=== PATIENT | female | born 2000 | race Caucasian/White ===

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

== ENCOUNTER 2019-07-23 22:46 | Observation (INO) ==
[2019-07-23] MEDS ORDERED: LEVSIN/MAALOX/LIDOC VISC PO ONE (23:08)
[2019-07-23] MEDS ORDERED: LEVSIN/MAALOX/LIDOC VISC ONE (23:09)
--- NOTE | 2019-07-23 23:13 | ED.ABDFE ---
HPI - PCP Primary Care Physician: BENITA ONOFRE - HPI Comment HPI Comment: Pain as below; constant and worsening; n/v x 2; no diarrhea; took tums/zantac w/o relief; no rash, fever or chills; unable to get comfortable. - Complaint Chief Complaint:: STATES SHE STARTED HURTING 3 DAYS AGO IN THE CENTER OF HER STOMACH. STATES THE PAIN HAS GOTTEN WORSE AND IS NOW RADIATING AROUND THE LEFT SIDE TO HER BACK. - Source History Provided: Patient - Mode of arrival Mode of Arrival: Ambulatory - Timing Onset of Chief Complaint: 07/20/19 - Time seen Time Seen by Provider: 07/23/19 23:07 PMH - PMH Past Medical History: Yes Past Medical History: Depression, Anxiety, GERD Past Surgical History: Yes Surgical History: Cholecystectomy, Tonsillectomy - Family History History of Family Medical Conditions: Yes Family Medical History: Diabetes Mellitus, Hypertension - Social History Does patient currently use any type of tobacco product: No Have you used tobacco products in the last 12 months: No Type of Tobacco Use: None Does any household member use tobacco: Yes Do you use any recreational Drugs:: No Lives With: Spouse Lives Where: Home - infectious screening In the last 2 months have you had wt loss of >10#?: NO Have you had fever, night sweats or hemotysis?: No Have you traveled outside the country in the last 6 months?: No Isolation: Standard ROS - Review of Systems Constitutional: No Symptoms Reported Eyes: No Symptoms Reported ENTM: No Symptoms Reported Respiratoy: No Symptoms Reported Cardiovascular: No Symptoms Reported Gastrointestinal/Abdominal: See HPI Genitourinary: No Symptoms Reported Neurological: No Symptoms Reported Musculoskeletal: No Symptoms Reported Integumentary: No Symptoms Reported Hematologic/Lymphatic: No Symptoms Reported Endocrine: No Symptoms Reported Psychiatric: No Symptoms Reported PE - General Limitations: No Limitations General Appearance: Alert, In No Apparent Distress - Head Head Exam: Normal Inspection - Eyes Eye exam: Normal Appearance, PERRL - ENT ENT Exam: Normal Exam - Neck Neck Exam: Normal Inspection - Chest Chest Inspection: Normal Inspection - Respiratory Respiratory Exam: Normal Lung Sounds Bilat - Cardiovascular Cardiovascular Exam: Regular Rate, Normal Rhythm - Abdominal Exam Abdominal Exam: Normal Inspection, Normal Bowel Sounds, Soft Abdominal Tenderness: RLQ, Other (rt flank) - Extremeties Extremities Exam: Normal Inspection, Full ROM - Neurologic Neurological Exam: Alert, Oriented X3 - Vital Signs Vitals: Temperature 97.3 F Pulse Rate 90 Respiratory Rate 18 Blood Pressure [Right Arm] 122/71 Blood Pressure 125/68 O2 Sat by Pulse Oximetry 99 Course - Reevaluation 1st: Worsened (throwing up) - Consultation Called: 00:40 (s/w Dr Perea who accepts consult) Call Returned: 01:10 (Dr Lau accepts admission) - Education/Counseling Education/Counseling: Patient, Family ROR - Labs Reviewed Result Diagrams: 07/23/19 23:22 07/23/19 23:22 - XRAY XRAY Interpreted by: Radiologist (Acute appendicitis. Surgical consultation recommended) - Labs Reviewed Laboratory: WBC 7.1 X10^3/uL (3.6-10.0) 07/23/19 23:22 RBC 4.86 X10^6/uL (3.5-5.4) 07/23/19 23:22 Hgb 14.3 g/dL (12.0-16.0) 07/23/19 23:22 Hct 41.3 % (36.0-47.0) 07/23/19 23:22 MCV 84.8 fL (80.0-100.0) 07/23/19 23:22 MCH 29.3 pg (27.0-34.0) 07/23/19 23:22 MCHC 34.6 g/dL (33.0-35.0) 07/23/19 23:22 RDW 13.5 % (11.6-16.5) 07/23/19 23:22 Plt Count 349 X10^3/uL (150.0-450.0) 07/23/19 23:22 MPV 7.7 fL (7.4-11.0) 07/23/19 23:22 Neut % (Auto) 47.2 % (42.0-75.0) 07/23/19 23:22 Lymph % (Auto) 43.8 % (21.0-51.0) 07/23/19 23:22 [place] % (Auto) 7.4 % (0.0-13.0) 07/23/19 23:22 Eos % (Auto) 1.0 % (0.9-2.9) 07/23/19 23:22 Baso % (Auto) 0.6 % (0.2-1.0) 07/23/19 23:22 Neut # (Auto) 3.4 x10^3/uL (2.2-4.8) 07/23/19 23:22 Lymph # (Auto) 3.1 X10^3/uL (1.3-2.9) H 07/23/19 23:22 [place] # (Auto) 0.5 x10^3/uL (0.3-0.8) 07/23/19 23:22 Eos # (Auto) 0.1 x10^3/uL (0.0-0.2) 07/23/19 23:22 Baso # (Auto) 0.0 X10^3/uL (0.0-0.1) 07/23/19 23:22 Absolute Nucleated RBC 0.0 /100WBC 07/23/19 23:22 Sodium 138 mmol/L (136-145) 07/23/19 23:22 Corrected Sodium TNP 07/23/19 23:22 Potassium 3.8 mmol/L (3.5-5.1) 07/23/19 23:22 Chloride 102 mmol/L (98-107) 07/23/19 23:22 Carbon Dioxide 26.3 mmol/L (21-32) 07/23/19 23:22 BUN 11 mg/dL (7-18) 07/23/19 23:22 Creatinine 0.80 mg/dL (0.55-1.02) 07/23/19 23:22 Est GFR (MDRD) Af Amer > 60 (>60) 07/23/19 23:22 Est GFR (MDRD) Non-Af > 60 (>60) 07/23/19 23:22 Glucose 105 mg/dL (65-99) H 07/23/19 23:22 Calcium 9.1 mg/dL (8.5-10.1) 07/23/19 23:22 Corrected Calcium TNP 07/23/19 23:22 Total Bilirubin 0.20 mg/dL (0.2-1.0) 07/23/19 23:22 AST 19 Units/L (15-37) 07/23/19 23:22 ALT 45 Units/L (12-78) 07/23/19 23:22 Alkaline Phosphatase 77 Units/L (45-150) 07/23/19 23:22 Total Protein 7.3 g/dL (6.4-8.2) 07/23/19 23:22 Albumin 3.9 g/dL (3.4-5.0) 07/23/19 23:22 Globulin 3.4 g/dL (2.5-4.5) 07/23/19 23:22 Albumin/Globulin Ratio 1.1 Ratio (1.1-2.1) 07/23/19 23:22 Amylase 43 Units/L (25-115) 07/23/19 23:22 Lipase 146 Units/L (73-393) 07/23/19 23:22 HCG, Qual Negative <10 mIU/mL 07/23/19 23:22 Specimen Type Clean catch urine 07/23/19 23:17 Urine Color Pale yellow (YELLOW) 07/23/19 23:17 Urine Appearance Clear (CLEAR) 07/23/19 23:17 Urine pH 7.0 (5.0 - 8.0) 07/23/19 23:17 Ur Specific [place] 1.010 (1.000-1.030) 07/23/19 23:17 Urine Protein Negative (NEGATIVE) 07/23/19 23:17 Urine Glucose (UA) Negative (NEGATIVE) 07/23/19 23:17 Urine Ketones Negative (NEGATIVE) 07/23/19 23:17 Urine Occult Blood 1+ (NEGATIVE) 07/23/19 23:17 Urine Nitrite Negative (NEGATIVE) 07/23/19 23:17 Urine Bilirubin Negative (NEGATIVE) 07/23/19 23:17 Urine Urobilinogen Normal (NORMAL) 07/23/19 23:17 Ur Leukocyte Esterase Negative (NEGATIVE) 07/23/19 23:17 Urine RBC 0-2 /HPF (0-3) 07/23/19 23:17 Urine WBC None seen /HPF (0-5) 07/23/19 23:17 Ur Squamous Epith Cells Negative /HPF (NEGATIVE) 07/23/19 23:17 Urine Bacteria Trace /HPF (NEGATIVE) 07/23/19 23:17 Ur Culture Indicated? No/not indicated 07/23/19 23:17 Opioid - Opioid Risk Tool Age (Uriel box if 16-45): Yes Total: 1 Total Score Risk Category: Low Risk - Diagnosis Discharge Problem: Nephrolithiasis Appendicitis Qualifiers: Appendicitis type: acute appendicitis Acute appendicitis type: other Qualified Code(s): K35.890 - Other acute appendicitis without perforation or gangrene - Discharge Plan Disposition: 09 ADMITTED INPATIENT Condition: Stable - Follow ups/Referrals Follow ups/Referrals: OPAL AUSTIN [Primary Care Provider] - 3 days - Instructions Instructions: Appendicitis
[2019-07-23 23:30] LABS: BILIRUBIN,URINE NEGATIVE (NEGATIVE); BLOOD/HEMOGLOBIN,URINE 1+ (NEGATIVE); GLUCOSE, URINE NEGATIVE (NEGATIVE); KETONES,URINE NEGATIVE (NEGATIVE); LEUKOCYTE ESTERASE ,URINE NEGATIVE (NEGATIVE); NITRITES,URINE NEGATIVE (NEGATIVE); PROTEIN,URINE NEGATIVE (NEGATIVE); UROBILINOGEN,URINE NORMAL (NORMAL)
[2019-07-23 23:33] LABS: BASOPHILS % (AUTO) 0.6 % (0.2-1.0); EOSINOPHILS # (AUTO) 0.1 x10^3/uL (0.0-0.2); HEMATOCRIT 41.3 % (36.0-47.0); HEMOGLOBIN 14.3 g/dL (12.0-16.0); LYMPHOCYTES # (AUTO) 3.1 X10^3/uL (1.3-2.9); LYMPHOCYTES % (AUTO) 43.8 % (21.0-51.0); MEAN CORPUSCULAR HEMOGLOBIN 29.3 pg (27.0-34.0); MEAN CORPUSCULAR HGB CONC 34.6 g/dL (33.0-35.0); MEAN CORPUSCULAR VOLUME 84.8 fL (80.0-100.0); MEAN PLATELET VOLUME 7.7 fL (7.4-11.0); MONOCYTES # (AUTO) 0.5 x10^3/uL (0.3-0.8); MONOCYTES % (AUTO) 7.4 % (0.0-13.0); NEUTROPHILS # (AUTO) 3.4 x10^3/uL (2.2-4.8); NEUTROPHILS % (AUTO) 47.2 % (42.0-75.0); PLATELET COUNT 349 X10^3/uL (150.0-450.0); RED BLOOD COUNT 4.86 X10^6/uL (3.5-5.4); RED CELL DISTRIBUTION WIDTH 13.5 % (11.6-16.5); WHITE BLOOD COUNT 7.1 X10^3/uL (3.6-10.0)
[2019-07-23 23:36] LABS: APPEARANCE,URINE CLEAR (CLEAR); COLOR,URINE PALE YELLOW (YELLOW)
[2019-07-23 23:38] LABS: BACTERIA,URINE TRACE /HPF (NEGATIVE); RBC,URINE 0-2 /HPF (0-3); SQUAMOUS EPITHELIAL CELL,UR NEGATIVE /HPF (NEGATIVE)
[2019-07-23 23:45] LABS: ALANINE AMINOTRANSFERASE 45 Units/L (12-78); ALBUMIN 3.9 g/dL (3.4-5.0); ALKALINE PHOSPHATASE 77 Units/L (45-150); AMYLASE 43 Units/L (25-115); ASPARTATE AMINO TRANSFERASE 19 Units/L (15-37); BLOOD UREA NITROGEN 11 mg/dL (7-18); CALCIUM 9.1 mg/dL (8.5-10.1); CARBON DIOXIDE 26.3 mmol/L (21-32); CHLORIDE 102 mmol/L (98-107); LIPASE 146 Units/L (73-393); SODIUM 138 mmol/L (136-145); TOTAL PROTEIN 7.3 g/dL (6.4-8.2); eGFR NON BLACK RACES > 60 (>60)
[2019-07-24] MEDS ORDERED: MORPHINE SULFATE INJ 4 MG IM ONE
[2019-07-24] MEDS ORDERED: MORPHINE SULFATE INJ 4 MG ONE (00:06)
[2019-07-24 00:17] LABS: SERUM PREGNANCY TEST, QUAL NEGATIVE <10 mIU/mL
[2019-07-24] MEDS ORDERED: PHENERGAN INJ 25 MG IM ONE ×2 (00:22→00:25)
--- NOTE | 2019-07-24 00:35 | CT ---
CT abdomen and pelvis without contrast Indication: Left flank pain for 3 days Technique: Helical images through the abdomen and pelvis without contrast. Coronal and sagittal reformats provided. Comparison: 11/01/2018 Findings: Limited images through the lower chest shows no acute abnormality. Review of bone windows shows no destructive osseous lesion. Abdomen: Gallbladder is absent. The liver, spleen, pancreas, adrenal glands, stomach and small bowel show no acute abnormality. Vasculature is normal. There is no hydronephrosis. Punctate right upper pole renal stone again noted without hydroureteronephrosis No acute colonic abnormality seen. The appendix is dilated with adjacent. Appendiceal stranding. Appendix measures 9 mm on axial image 55. Pelvis: The urinary bladder and rectum are normal. Uterus and adnexa show no acute abnormality. Impression: One Acute appendicitis. Surgical consultation recommended 2. No other acute abnormality seen. Reported By:
[2019-07-24] MEDS ORDERED: MORPHINE SULFATE INJ 4 MG IV PRN (01:13)
[2019-07-24] MEDS ORDERED: PHENERGAN INJ 25 MG IM PRN ×2 (01:13→09:28)
[2019-07-24] MEDS ORDERED: NS 100 ML IV + SPIKE MINIBAG* 100 ML IV ONE ×4 (01:27→20:01)
[2019-07-24] MEDS: NS 1000 ML 1,000 ML IV SCH ×3 (01:55→21:55)
[2019-07-24] MEDS: ZOSYN VIAL 3.375 GRAMS 3.375 G in NS 100 ML IV + SPIKE MINIBAG* 100 ML IV SCH ×3 (01:56→21:54)
[2019-07-24 02:28] VITALS: BMI 35.0
[2019-07-24] MEDS: ZOSYN VIAL 3.375 GRAMS IV SCH ×3 (06:44→21:00)
[2019-07-24] MEDS ORDERED: LR 1000 ML IV 1,000 ML IV ONE (07:49)
[2019-07-24] MEDS ORDERED: FLAGYL IV PREMIX 500 MG BAG 500 MG/100 ML BAG IV ONE (07:54)
[2019-07-24] MEDS ORDERED: FENTANYL INJ 250 mcg ONE (08:14)
[2019-07-24] MEDS ORDERED: BACTROBAN TOPICAL OINT ONE (09:06)
[2019-07-24] MEDS ORDERED: BENADRYL INJ 50 MG VIAL IVP PRN (09:28)
[2019-07-24] MEDS ORDERED: REGLAN INJ 10 MG VIAL IVP PRN (09:28)
[2019-07-24] MEDS ORDERED: DILAUDID INJ IVP PRN (09:28)
[2019-07-24] MEDS ORDERED: D5 1/2 NS 1000 ML 1,000 ML IV ONE (10:11)
[2019-07-24] MEDS: D5 1/2 NS 1000 ML 1,000 ML IV SCH ×2 (10:12→18:35)
[2019-07-24] MEDS ORDERED: NS IRRIGATION 3000 ML ONE (15:13)
[2019-07-24] MEDS ORDERED: ROBINUL ONE (15:14)
[2019-07-24] MEDS ORDERED: SUPRANE ONE (15:14)
[2019-07-24] MEDS ORDERED: QUELICIN (OR ANECTINE) ONE (15:14)
[2019-07-24] MEDS ORDERED: VERSED ONE (15:14)
[2019-07-24] MEDS ORDERED: DIPRIVAN VIAL ONE (15:14)
[2019-07-24] MEDS ORDERED: NORCURON INJ 10 MG VIAL ONE (15:14)
[2019-07-24] MEDS ORDERED: TORADOL 30 MG VIAL ONE (15:14)
[2019-07-24] MEDS ORDERED: NEOSTIGMINE INJ ONE (15:14)
--- NOTE | 2019-07-24 17:58 | DR.H&P ---
H&P - History of Present Illness History of Present Illness: STATES SHE STARTED HURTING 3 DAYS AGO IN THE CENTER OF HER STOMACH. STATES THE PAIN HAS GOTTEN WORSE AND IS NOW RADIATING AROUND THE LEFT SIDE TO HER BACK. - Past Medical History Past Medical History: Depression, Anxiety, GERD - Past Surgical History Surgical History: Cholecystectomy, Tonsillectomy - Family History Family Medical History: Diabetes Mellitus, Cancer, [place], Hypertension - Social History Does patient currently use any type of tobacco product: No Have you used tobacco products in the last 12 months: No Type of Tobacco Use: None Does any household member use tobacco: Yes Alcohol Use: None Drug Use: None - Medications Home Medications: aspirin Allergy (Verified 11/01/18 11:43) meloxicam [From Mobic] Allergy (Verified 11/01/18 11:43) ondansetron [From Zofran (as hydrochloride)] Adverse Reaction (Verified 11/01/18 11:43) CONTINUE taking the following medications NK 07/23/19 [History] - Review of Systems Constitutional: No Symptoms Reported Eyes: No Symptoms Reported ENT: No Symptoms Reported Respiratory: No Symptoms Reported Cardiovascular: No Symptoms Reported Gastrointestinal: Nausea Genitourinary: No Symptoms Reported Musculoskeletal: Back Pain Skin: No Symptoms Reported Neurological: No Symptoms Reported - Physical Exam Vital Signs: Temperature 98.1 F Pulse Rate [Left Brachial] 74 Pulse Rate 85 Respiratory Rate 18 Blood Pressure [Left Arm] 109/56 Blood Pressure [Right Arm] 122/71 Blood Pressure 121/58 O2 Sat by Pulse Oximetry 97 Oriented: Normal Eyes: Normal Ear: Normal Nose: Normal Throat: Normal Respiratory: Clear Throughout Cardiovascular: Normal, Irregular Auscultation: Bowel Sounds: Normal Palpation: Normal Tenderness: RLQ Skin: Normal Musculoskeletal: Normal Psychiatric: Normal Affect: Anxious Speech Pattern: Clear, Appropriate - Assessment/Plan (1) Appendicitis Qualifiers: Appendicitis type: acute appendicitis Acute appendicitis type: other Qualified Code(s): K35.890 - Other acute appendicitis without perforation or gangrene; K35.89 - Other acute appendicitis Status: Acute Plan: NPO,ADMIT FOR SURGICAL CONSULTATION - Allergies Allergies/Adverse Reactions: Allergies Allergy/AdvReac Type Severity Reaction Status Date / Time aspirin Allergy Verified 11/01/18 11:43 meloxicam [From Mobic] Allergy Verified 11/01/18 11:43 ondansetron AdvReac Verified 11/01/18 11:43 [From Zofran (as hydrochloride)]
[2019-07-24] MEDS: MORPHINE SULFATE INJ 4 MG IV PRN (18:10)
[2019-07-25] MEDS: NS 1000 ML 1,000 ML IV SCH ×2 (03:15→03:53)
[2019-07-25] MEDS: D5 1/2 NS 1000 ML 1,000 ML IV SCH (03:39)
[2019-07-25] MEDS ORDERED: NS 100 ML IV + SPIKE MINIBAG* 100 ML IV ONE (05:58)
[2019-07-25 06:14] LABS: BASOPHILS % (AUTO) 0.2 % (0.2-1.0); EOSINOPHILS # (AUTO) 0.1 x10^3/uL (0.0-0.2); EOSINOPHILS % (AUTO) 1.3 % (0.9-2.9); HEMATOCRIT 36.1 % (36.0-47.0); HEMOGLOBIN 12.3 g/dL (12.0-16.0); LYMPHOCYTES # (AUTO) 2.4 X10^3/uL (1.3-2.9); LYMPHOCYTES % (AUTO) 28.1 % (21.0-51.0); MEAN CORPUSCULAR HEMOGLOBIN 29.3 pg (27.0-34.0); MEAN CORPUSCULAR HGB CONC 34.2 g/dL (33.0-35.0); MEAN CORPUSCULAR VOLUME 85.7 fL (80.0-100.0); MEAN PLATELET VOLUME 7.8 fL (7.4-11.0); MONOCYTES # (AUTO) 0.6 x10^3/uL (0.3-0.8); MONOCYTES % (AUTO) 7.1 % (0.0-13.0); NEUTROPHILS # (AUTO) 5.4 x10^3/uL (2.2-4.8); NEUTROPHILS % (AUTO) 63.3 % (42.0-75.0); PLATELET COUNT 286 X10^3/uL (150.0-450.0); RED BLOOD COUNT 4.21 X10^6/uL (3.5-5.4); RED CELL DISTRIBUTION WIDTH 13.4 % (11.6-16.5); WHITE BLOOD COUNT 8.6 X10^3/uL (3.6-10.0)
[2019-07-25] MEDS: ZOSYN VIAL 3.375 GRAMS IV SCH (06:18)
[2019-07-25] MEDS: MORPHINE SULFATE INJ 4 MG IV PRN (06:40)
--- NOTE | 2019-07-25 09:50 | DR.PROGNOT ---
Hospital Progress Notes - Progress Note for Day of: Progress Note Date: 07/25/19 - Chief Complaint Chief Complaint: Post Op lap appendectomy . doing fairly well . afebrile and tolerating diet .. - Past Medical Family Social History Past Med/Fam/Surg Hx: No changes since H&P Allergies: Allergies aspirin Allergy (Verified 11/01/18 11:43) meloxicam [From Mobic] Allergy (Verified 11/01/18 11:43) ondansetron [From Zofran (as hydrochloride)] Adverse Reaction (Verified 11/01/18 11:43) - Review Of Systems ROS: No change since H&P - Vital Signs Vital Signs: Temperature 98.6 F Pulse Rate [Left Brachial] 79 Pulse Rate 91 Respiratory Rate 20 Blood Pressure [Left Arm] 108/56 Blood Pressure [Right Arm] 122/71 Blood Pressure 121/58 O2 Sat by Pulse Oximetry 97 - Physical Exam Oriented: Normal Eyes: Normal Ear: Normal Nose: Normal Throat: Normal Respiratory: Normal GI:Auscultation: Normal GI:Palpation: Normal GI: Tenderness: Diffuse (mild lower abdominal tenderness , BS+) Mood Description: Calm Speech Pattern: Clear, Appropriate - Laboratory and Diagnostics Result Diagrams: 07/25/19 05:45 07/23/19 23:22 Labs: Laboratory WBC 8.6 X10^3/uL (3.6-10.0) 07/25/19 05:45 RBC 4.21 X10^6/uL (3.5-5.4) 07/25/19 05:45 Hgb 12.3 g/dL (12.0-16.0) D 07/25/19 05:45 Hct 36.1 % (36.0-47.0) 07/25/19 05:45 MCV 85.7 fL (80.0-100.0) 07/25/19 05:45 MCH 29.3 pg (27.0-34.0) 07/25/19 05:45 MCHC 34.2 g/dL (33.0-35.0) 07/25/19 05:45 RDW 13.4 % (11.6-16.5) 07/25/19 05:45 Plt Count 286 X10^3/uL (150.0-450.0) 07/25/19 05:45 MPV 7.8 fL (7.4-11.0) 07/25/19 05:45 Neut % (Auto) 63.3 % (42.0-75.0) 07/25/19 05:45 Lymph % (Auto) 28.1 % (21.0-51.0) 07/25/19 05:45 [place] % (Auto) 7.1 % (0.0-13.0) 07/25/19 05:45 Eos % (Auto) 1.3 % (0.9-2.9) 07/25/19 05:45 Baso % (Auto) 0.2 % (0.2-1.0) 07/25/19 05:45 Neut # (Auto) 5.4 x10^3/uL (2.2-4.8) H 07/25/19 05:45 Lymph # (Auto) 2.4 X10^3/uL (1.3-2.9) 07/25/19 05:45 [place] # (Auto) 0.6 x10^3/uL (0.3-0.8) 07/25/19 05:45 Eos # (Auto) 0.1 x10^3/uL (0.0-0.2) 07/25/19 05:45 Baso # (Auto) 0.0 X10^3/uL (0.0-0.1) 07/25/19 05:45 Absolute Nucleated RBC 0.0 /100WBC 07/25/19 05:45 Sodium 138 mmol/L (136-145) 07/23/19 23:22 Corrected Sodium TNP 07/23/19 23:22 Potassium 3.8 mmol/L (3.5-5.1) 07/23/19 23:22 Chloride 102 mmol/L (98-107) 07/23/19 23:22 Carbon Dioxide 26.3 mmol/L (21-32) 07/23/19 23:22 BUN 11 mg/dL (7-18) 07/23/19 23:22 Creatinine 0.80 mg/dL (0.55-1.02) 07/23/19 23:22 Est GFR (MDRD) Af Amer > 60 (>60) 07/23/19 23:22 Est GFR (MDRD) Non-Af > 60 (>60) 07/23/19 23:22 Glucose 105 mg/dL (65-99) H 07/23/19 23:22 Calcium 9.1 mg/dL (8.5-10.1) 07/23/19 23:22 Corrected Calcium TNP 07/23/19 23:22 Total Bilirubin 0.20 mg/dL (0.2-1.0) 07/23/19 23:22 AST 19 Units/L (15-37) 07/23/19 23:22 ALT 45 Units/L (12-78) 07/23/19 23:22 Alkaline Phosphatase 77 Units/L (45-150) 07/23/19 23:22 Total Protein 7.3 g/dL (6.4-8.2) 07/23/19 23:22 Albumin 3.9 g/dL (3.4-5.0) 07/23/19 23:22 Globulin 3.4 g/dL (2.5-4.5) 07/23/19 23:22 Albumin/Globulin Ratio 1.1 Ratio (1.1-2.1) 07/23/19 23:22 Amylase 43 Units/L (25-115) 07/23/19 23:22 Lipase 146 Units/L (73-393) 07/23/19 23:22 HCG, Qual Negative <10 mIU/mL 07/23/19 23:22 Specimen Type Clean catch urine 07/23/19 23:17 Urine Color Pale yellow (YELLOW) 07/23/19 23:17 Urine Appearance Clear (CLEAR) 07/23/19 23:17 Urine pH 7.0 (5.0 - 8.0) 07/23/19 23:17 Ur Specific [place] 1.010 (1.000-1.030) 07/23/19 23:17 Urine Protein Negative (NEGATIVE) 07/23/19 23:17 Urine Glucose (UA) Negative (NEGATIVE) 07/23/19 23:17 Urine Ketones Negative (NEGATIVE) 07/23/19 23:17 Urine Occult Blood 1+ (NEGATIVE) 07/23/19 23:17 Urine Nitrite Negative (NEGATIVE) 07/23/19 23:17 Urine Bilirubin Negative (NEGATIVE) 07/23/19 23:17 Urine Urobilinogen Normal (NORMAL) 07/23/19 23:17 Ur Leukocyte Esterase Negative (NEGATIVE) 07/23/19 23:17 Urine RBC 0-2 /HPF (0-3) 07/23/19 23:17 Urine WBC None seen /HPF (0-5) 07/23/19 23:17 Ur Squamous Epith Cells Negative /HPF (NEGATIVE) 07/23/19 23:17 Urine Bacteria Trace /HPF (NEGATIVE) 07/23/19 23:17 Ur Culture Indicated? No/not indicated 07/23/19 23:17 Tissue Pathology To follow 07/24/19 09:00 - Assessment and Plan 1: post op lap appendectomy . will discharge and follow in 10 days . - Problem Patient Problems: Patient Problems Appendicitis (Acute) K37 Nephrolithiasis (Acute) N20.0
[2019-07-25 09:57] VITALS: BP 110/53
== END 2019-07-25 10:20 | disposition home or self-care (01) ==
LOC: ER 22:52 → MED/SURG 07-24 01:13 → INTOOBSV 07-24 01:13 → MED/SURG 07-24 01:57
PROVIDERS: ADMIT Internal Medicine; ATTEND Internal Medicine
PROC: APPYLAP (ICD-10-PCS; 2019-07-24 08:15)
DX: K35.890 Other acute appendicitis without perforation or gangrene; N20.0 Calculus of kidney; K21.9 Gastro-esophageal reflux disease without esophagitis; F32.89 Other specified depressive episodes; F41.8 Other specified anxiety disorders
CPT/HCPCS: 36415; 74176; 80053; 81001; 82150; 83690; 84703; 85025; 96365; 96367; 96372; 96374; 99284; A4222; S0030; G0378; J0330; J1885; J2250; J2270; J2543; J2550; J2704; J2710; J3010; J3490; J7030; J7050; J7120; S5010